=== PATIENT | male | born 1965 | race Caucasian/White ===

== ENCOUNTER 2018-05-23 19:55 | Emergency (ER) | payer OTHER, SELFPAY ==
[2018-05-23 20:10] VITALS: BP 165/99; PULSE 88; RESP 18; TEMP 36.6; O2SAT 97; BMI 33.7
--- NOTE | 2018-05-23 20:35 | ED.SKABFB ---
HPI - Skin/Abscess/Foreign Bdy General Chief complaint: Skin/Abscess/Foreign Body Stated complaint: BOIL ON CHEST Time Seen by Provider: 05/23/18 20:23 Source: patient Mode of arrival: ambulatory Limitations: no limitations History of Present Illness HPI narrative: 53-year-old male here for evaluation of a red area on his left anterior chest wall. He states that he noticed it a couple days ago. States that he thought that it was an ingrown hair. He did poke it with a needle and was able to express a very small amount of what appeared to be purulent material. No fevers. Has never had anything like this before. Has not tried anything for it other than poking with a needle prior to arrival. Related Data Home Medications Medication Instructions Recorded Confirmed Brain Elevate See Label Instructions .ROUTE 02/27/18 02/27/18 .COMPLEX Fish Oil/Red Rice Yeast See Label Instructions .ROUTE 02/27/18 02/27/18 .COMPLEX Previous Rx's Medication Instructions Recorded sulfamethoxazole-trimethoprim 1 tab PO BID 7 Days #14 tab 05/23/18 [Bactrim DS] Allergies Allergy/AdvReac Type Severity Reaction Status Date / Time shellfish derived Allergy Mild (shrimp) Verified 05/23/18 20:24 [SHELLFISH DERIVED] Itchy throat and blisters in my throat simvastatin [SIMVASTATIN] AdvReac Intermediate muscle Verified 05/23/18 20:24 cramps levofloxacin [LEVOFLOXACIN] AdvReac Mild put me on Verified 05/23/18 20:24 edge and totally freaked me out. Review of Systems Constitutional Denies fever(s) Cardiovascular Denies chest pain Musculoskeletal Denies myalgias Integumentary/Breasts Comments: Redness on his left side anterior chest Neurologic Denies behavioral changes Psychiatric Denies behavioral changes PFSH Medical History Healthy adult (Acute) Family History Mother Age: 70 Family history of breast cancer in female Social History Smoking Status: Never smoker second hand exposure: No alcohol intake: current (a little bit.) substance use type: does not use Exam Initial Vital Signs Initial Vital Signs: Vital Signs Temperature 98 F 05/23/18 20:10 Pulse Rate 88 05/23/18 20:10 Respiratory Rate 18 05/23/18 20:10 Blood Pressure 165/99 H 05/23/18 20:10 Pulse Oximetry 97 05/23/18 20:10 Const General: cooperative, healthy appearing, comfortable, well developed, well groomed and No acute distress Orientation: alert, awake and oriented x3 HENMT Head: normal to inspection and normocephalic Resp Effort & Inspection: normal respiratory effort Cardio Rate: regular rate Skin Other: Patient with a 10 cm round area of redness on his left anterior chest just above the nipple. The center this has a 3 cm area of induration with a punctate area where it appears that he poked this with a needle. No drainage. Neuro General: alert, awake and oriented x3 Extrem General: normal to inspection and capillary refill normal Psych Appearance: grossly normal and well kempt Course Orders Ordered: Discontinued Medications Trimethoprim/Sulfamethoxazole (Bactrim Ds) 1 tab PO NOW ONE Stop: 05/23/18 20:37 Last Admin: 05/23/18 20:40 Dose: 1 tab Vital Signs - 8 hr 05/23/18 20:10 Temperature 98 F Pulse Rate 88 Respiratory Rate 18 Blood Pressure 165/99 H Pulse Oximetry 97 MDM - Skin/Abscess/Foreign Bdy MDM Narrative Medical decision making narrative: Bedside ultrasound does not show any signs of abscess. The area of redness was outlined with a marker. Will send home with Bactrim. No indication for incision and drainage. Patient was given return precautions. He expressed understanding and agreement with plan. Discharge Plan Departure Patient Disposition: Home Clinical Impression: Cellulitis Discharge Date/Time: 05/23/18 20:55 Interventions: ED Discharge Assessment Last Done: 05/23/18 20:54 Instructions: DI for Cellulitis -- Adult Activity Restrictions/Additional Instructions: There is no abscess noted on the ultrasound performed today. Your 1st dose of antibiotics was given here in the emergency department. Please fill the prescription tomorrow morning and start taking it as directed. Return to the emergency department for any new or worsening symptoms Prescriptions: New sulfamethoxazole-trimethoprim [Bactrim DS] 800-160 mg tablet 1 tab PO BID 7 Days Qty: 14 RF: 0 No Action Brain Elevate capsule See Patient Comments .ROUTE .COMPLEX RF: 0 Fish Oil/Red Rice Yeast capsule See Patient Comments .ROUTE .COMPLEX RF: 0
[2018-05-23] MEDS: TRIMETH/SULFA 160/800 (DS) TABLET 1 TAB PO (20:40)
== END 2018-05-23 20:55 | disposition home or self-care (01) ==
PROVIDERS: Emergency Provider Emergency Medicine; PCP Family Medicine
DX: L03.313 Cellulitis of chest wall (principal)
CPT/HCPCS: 99282; 99283

== ENCOUNTER → 2018-12-18 08:40 | Outpatient (CLI) | payer BC, SELFPAY ==
--- NOTE | 2018-12-18 | DI.RAD.S_ITS ---
PROCEDURE: XR LUMBAR SPINE 2-3V INDICATIONS: LOWER BACK PAIN TECHNIQUE: 3 views of the lumbar spine were acquired. COMPARISON: None. FINDINGS: Bones: 5 [id number] vertebrae are present. There is normal bony alignment. No vertebral body compression fractures. No suspicious bony lesions. There is moderate to moderately severe degenerative disc disease along the lumbosacral spine, with facet osteoarthritis most pronounced and progressively more prominent from L3-S1. Soft tissues: Overlying bowel gas pattern is normal. No suspicious soft tissue calcifications. IMPRESSION: The spine appears free of acute trauma but the degenerative changes are significant to the degree that spinal and foraminal stenosis from L3 inferiorly would be expected. Depending on the clinical status followup by MR scanning may be warranted. Dictated by: Ricky Wise M.D. on 12/18/2018 at 9:53 Approved by: Ricky Wise M.D. on 12/18/2018 at 9:54
== END ==
PROVIDERS: PCP Family Medicine; Visit Provider Chiropractor
DX: M54.5 Low back pain (principal); M47.816 Spondylosis without myelopathy or radiculopathy, lumbar region; M47.817 Spondylosis without myelopathy or radiculopathy, lumbosacral region
CPT/HCPCS: 72100

== ENCOUNTER → 2019-05-30 08:18 | Outpatient (CLI) | payer BC, SELFPAY ==
[2019-05-30 09:19] LABS: Hemoglobin A1C% w Est Avg Glu 5.3 % (4.0-6.0)
[2019-05-30 09:36] LABS: Alanine Aminotransferase 45 IU/L (<50); Albumin 4.6 g/dL (3.5-5.0); Albumin Globulin Ratio 1.4 (1.0-2.8); Alkaline Phosphatase 77 U/L (38-126); Aspartate Aminotransferase 33 IU/L (17-59); Bilirubin Total 0.7 mg/dL (0.2-1.3); Blood Urea Nitrogen 21 mg/dL (9-20); Calcium 9.3 mg/dL (8.4-10.2); Carbon Dioxide 25 mmol/L (22-32); Chloride 105 mmol/L (98-107); Cholesterol 225 mg/dL (140-199); Estimated Glomerular Filt Rate > 60.0 mL/min (>60); Globulin 3.4 g/dL (1.7-4.1); Glucose 93 mg/dL (70-100); HDL Cholesterol 29 mg/dL (40-60); HEMOLYSIS < 15 (0-50); LDL Cholesterol Calculated 166 mg/dL (<100); Potassium 4.3 mmol/L (3.4-5.1); Sodium 140 mmol/L (137-145); Triglycerides 150 mg/dL (35-150)
== END ==
PROVIDERS: PCP Family Medicine; Visit Provider Family Medicine
DX: Z13.1 Encounter for screening for diabetes mellitus (principal); Z13.220 Encounter for screening for lipoid disorders; E78.00 Pure hypercholesterolemia, unspecified
CPT/HCPCS: 36415; 80053; 80061; 83036

== ENCOUNTER → 2019-08-11 13:14 | Outpatient (CLI) | payer BC, SELFPAY ==
[2019-08-11 15:06] LABS: Prostate Specific Antigen Scrn 1.36 ng/mL (0.1-4.0)
== END ==
PROVIDERS: PCP Family Medicine; Referring Provider Family Medicine; Visit Provider Family Medicine
DX: Z12.5 Encounter for screening for malignant neoplasm of prostate (principal)
CPT/HCPCS: 36415; G0103

== ENCOUNTER → 2020-07-31 10:09 | Outpatient (CLI) | payer BC, SELFPAY ==
[2020-07-31 10:40] LABS: Add Manual Diff / Slide Review NO; Basophils Absolute Auto 0 /uL (0-100); Basophils Percent Auto 0.5 % (0-2); Eosinophils Absolute Auto 200 /uL (0-450); Eosinophils Percent Auto 3.3 % (2-4); Hematocrit 47.8 % (41-53); Hemoglobin 16.2 g/dL (13.5-17.5); Lymphocytes Absolute Auto 2200 /uL (1100-4500); Lymphocytes Percent Auto 34.7 % (25-40); Mean Corpuscular HGB Conc 33.9 % (30-36); Mean Corpuscular Hemoglobin 30.8 PG (26-34); Monocytes Absolute Auto 800 /uL (0-900); Monocytes Percent Auto 12.2 % (3-14); Neutrophils Absolute Auto 3100 /uL (1500-7000); Neutrophils Percent Auto 49.3 % (50-75); Platelet Count 271 X10^3/uL (150-400); Red Blood Cell Count 5.25 X10^6/uL (4.5-5.9); Red Cell Distribution Width 13.4 % (11.6-14.8); White Blood Cell Count 6.2 X10^3/uL (4.5-11.0)
[2020-07-31 11:09] LABS: Alanine Aminotransferase 64 IU/L (<50); Albumin 4.4 g/dL (3.5-5.0); Albumin Globulin Ratio 1.4 (1.0-2.8); Alkaline Phosphatase 93 U/L (38-126); Aspartate Aminotransferase 33 IU/L (17-59); BUN Creatinine Ratio 19.4 (6-22); Bilirubin Total 0.5 mg/dL (0.2-1.3); Blood Urea Nitrogen 19 mg/dL (9-20); Calcium 9.8 mg/dL (8.4-10.2); Carbon Dioxide 26 mmol/L (22-32); Chloride 104 mmol/L (98-107); Cholesterol 212 mg/dL (140-199); Estimated Glomerular Filt Rate > 60.0 mL/min (>60); Globulin 3.2 g/dL (1.7-4.1); Glucose 102 mg/dL (70-100); HDL Cholesterol 40 mg/dL (40-60); HEMOLYSIS < 15 (0-50); LDL Cholesterol Calculated 144 mg/dL (<100); Potassium 4.8 mmol/L (3.4-5.1); Sodium 137 mmol/L (137-145); Total Protein 7.6 g/dL (6.3-8.2); Triglycerides 138 mg/dL (35-150)
[2020-07-31 11:38] LABS: Prostate Specific Antigen Scrn 0.931 ng/mL (0.1-4.0)
== END ==
PROVIDERS: PCP Family Medicine; Referring Provider Family Medicine; Visit Provider Family Medicine
DX: E78.5 Hyperlipidemia, unspecified (principal); E78.00 Pure hypercholesterolemia, unspecified; Z12.5 Encounter for screening for malignant neoplasm of prostate
CPT/HCPCS: 36415; 80053; 80061; 85025; G0103

== ENCOUNTER → 2020-08-02 10:46 | Outpatient (CLI) | payer BC, SELFPAY ==
--- NOTE | 2020-08-02 10:59 | DI.RAD.S_ITS ---
PROCEDURE: XR CHEST 2V INDICATIONS: cough TECHNIQUE: 2 views of the chest were acquired. COMPARISON: None. FINDINGS: Surgical changes and devices: None. Lungs and pleura: Lungs are clear. No pleural effusions or pneumothorax. Mediastinum: Mediastinal contours are normal. Heart size is normal. Bones and chest wall: No suspicious bony abnormalities. Soft tissues appear unremarkable. IMPRESSION: No acute cardiopulmonary disease. Dictated by: Nima Chavez [facility] Interpreted: Meño Go MD on 08/02/2020 at 11:19 Approved by: Meño Go M.D. on 08/10/2020 at 11:18
== END ==
PROVIDERS: PCP Family Medicine; Referring Provider Family Medicine; Visit Provider Family Medicine
DX: R05 Cough (principal)
CPT/HCPCS: 71046

== ENCOUNTER → 2021-04-19 17:26 | Outpatient (CLI) | payer OTHER, SELFPAY ==
[2021-04-19 18:07] LABS: COVID19 -Nasal RAPID POSITIVE (Negative)
== END ==
PROVIDERS: PCP Family Medicine; Visit Provider Physician Assistant
DX: R05.9 Cough, unspecified (principal); R52 Pain, unspecified
CPT/HCPCS: 87635

== ENCOUNTER 2021-08-04 11:55 | Emergency (ER) | payer OTHER, SELFPAY ==
[2021-08-04 12:14] VITALS: BP 147/89; PULSE 56; RESP 15; TEMP 36.4; O2SAT 96; BMI 36.6
[2021-08-04 13:43] VITALS: PULSE 67; RESP 18; O2SAT 98
[2021-08-04 13:44] VITALS: BP 144/85; PULSE 67; O2SAT 97
[2021-08-04 14:00] VITALS: PULSE 62; RESP 18; O2SAT 97
[2021-08-04 14:04] VITALS: BP 133/86; PULSE 63; O2SAT 97
[2021-08-04 14:30] VITALS: PULSE 62; RESP 18; O2SAT 98
--- NOTE | 2021-08-04 15:38 | DI.RAD.S_ITS ---
PROCEDURE: XR FOREARM RT 2V INDICATIONS: Pain/injury TECHNIQUE: 2 views of the forearm were acquired. COMPARISON: [facility], CR, XR HUMERUS RT 2V, 08/04/2021, 15:37. FINDINGS: Bones: No fractures or dislocations. No suspicious bony lesions. Soft tissues: No suspicious soft tissue calcifications or masses. IMPRESSION: No acute osseous abnormality. Dictated by: Vasquez Hawkins M.D. on 08/04/2021 at 16:01 Approved by: Vasquez Hawkins M.D. on 08/04/2021 at 16:04
--- NOTE | 2021-08-04 15:38 | DI.RAD.S_ITS ---
PROCEDURE: XR HUMERUS RT 2V INDICATIONS: Pain/injury TECHNIQUE: 2 views of the humerus were acquired. COMPARISON: [facility], CR, XR FOREARM RT 2V, 08/04/2021, 15:37. FINDINGS: Bones: No fractures or dislocations. Mild to moderate degenerative change of the right shoulder. No suspicious bony lesions. Soft tissues: No suspicious soft tissue calcifications. IMPRESSION: No acute osseous abnormality. Dictated by: Vasquez Hawkins M.D. on 08/04/2021 at 16:04 Approved by: Vasquez Hawkins M.D. on 08/04/2021 at 16:05
--- NOTE | 2021-08-04 15:39 | ED_ITS ---
HPI - Extremity Injury (Upper) General Chief Complaint: Extremity Injury, Upper Stated Complaint: Thinks Tore Rt Bicep Time Seen by Provider: 08/04/21 15:33 Source: patient Mode of arrival: Ambulatory History of Present Illness HPI narrative: Patient here for right biceps arm pain. Was at home late this morning was throwing a branch. Feel tearing in the distal biceps. No numbness tingling or weakness. No prior injury. There is deformity to the distal portion of the right bicep. Related Data Home Medications Medication Instructions Recorded Confirmed Brain Elevate See Rx Instructions .ROUTE .COMPLEX 02/27/18 08/02/20 Fish Oil/Red Rice Yeast See Rx Instructions .ROUTE .COMPLEX 02/27/18 08/02/20 multivitamin 1 tab PO DAILY 05/30/19 08/02/20 Previous Rx's Medication Instructions Recorded pravastatin 10 mg tablet 10 mg PO BEDTIME #90 tab 08/20/20 hydrocodone 5 mg-acetaminophen 325 1 tab PO Q6H PRN #15 tab 08/04/21 mg tablet ondansetron 4 mg disintegrating 4 mg PO Q8H PRN #10 tab 08/04/21 tablet Allergies Allergy/AdvReac Type Severity Reaction Status Date / Time shellfish derived Allergy Mild (shrimp) Verified 08/04/21 12:16 [SHELLFISH DERIVED] Itchy throat and blisters in my throat simvastatin [SIMVASTATIN] AdvReac Intermediate muscle Verified 08/04/21 12:16 cramps levofloxacin [LEVOFLOXACIN] AdvReac Mild put me on Verified 08/04/21 12:16 edge and totally freaked me out. Review of Systems Review of Systems Narrative: GENERAL: Denies chills, fatigue, malaise, fever, sweats. HEENT: Denies sinus pain, ear pain, sore throat RESPIRATORY: Denies dyspnea, cough CARDIOVASCULAR: Denies chest pain, palpitations GASTROINTESTINAL: Denies nausea, vomiting, abdominal pain : Denies dysuria, frequency, hematuria MUSCULOSKELETAL: Positive for muscle or bony pain SKIN: Denies rash, skin lesions NEUROLOGIC: Denies weakness, numbness ROS Unobtainable: All systems reviewed & are unremarkable except as noted in HPI and below Patient History Medical History Encounter for general adult medical examination without abnormal findings Healthy adult Hyperlipidemia Low back pain Well adult exam Family History Mother Age: 73 Family history of breast cancer in female Social History Smoking Status: Never smoker second hand exposure: No alcohol intake: current (a little bit.) substance use type: does not use Smoking Status: Never smoker alcohol intake frequency: holidays/special occasions only Substance Use Type: does not use Exam Narrative Exam Narrative: GENERAL: in no distress, not toxic not dyspneic HEAD: Normocephalic. EXTREMITIES: Examination right upper extremity nontender shoulder elbow and wrist. There is drop off deformity of the distal biceps. Increased pain with attempt with flexion of the elbow with deformity to the biceps. Able to supinate pronate. Strong senior sales consultant in radial pulse light touch intact to fingers and thumb. NEURO: AOx4. SKIN: Warm and dry PSYCH: Not anxious, is cooperative Initial Vital Signs Initial Vital Signs: Vital Signs Temperature 97.6 F 08/04/21 12:14 Pulse Rate 56 L 08/04/21 12:14 Respiratory Rate 15 08/04/21 12:14 Blood Pressure 147/89 H 08/04/21 12:14 Pulse Oximetry 96 08/04/21 12:14 Course Course Course Narrative: No new issues during course of stay Orders Ordered: Discontinued Medications Hydrocodone Bitart/Acetaminophen (Hydrocodone/Acet 5/325 Tablet) 2 tab PO NOW ONE Stop: 08/04/21 15:39 Last Admin: 08/04/21 15:43 Dose: 2 tab Documented by: JNAET Ondansetron HCl (Ondansetron 4 Mg Odt) 4 mg SL NOW ONE Stop: 08/04/21 15:39 Last Admin: 08/04/21 15:43 Dose: 4 mg Documented by: JANET Reevaluation(s) Reevaluation #1: Updated patient and family results. At this time will need outpatient MRI with orthopedics. Referral given. Pain controlled at this time. Sling provided. Time: 16:34 Vital Signs Vital signs: Vital Signs - 8 hr 08/04/21 12:14 08/04/21 13:43 08/04/21 13:44 Temperature 97.6 F Pulse Rate 56 L 67 67 Respiratory Rate 15 18 Blood Pressure 147/89 H 144/85 H Pulse Oximetry 96 98 97 08/04/21 14:00 08/04/21 14:04 08/04/21 14:30 Temperature Pulse Rate 62 63 62 Respiratory Rate 18 18 Blood Pressure 133/86 Pulse Oximetry 97 97 98 MDM - Extremity Injury (Upper) Differential Diagnosis Differential diagnosis: Likely other (Muscle tear/fracture) Imaging Data Extremity x-ray #1: Radiologist's Impression: [address] [address] XRay Report Signed Patient: David Ariza MR#: [id number] : 1965 Acct:[id number] Age/Sex: 56 / M Date of Service: 08/04/21 Loc: ED Accession Number: [id number] ?? Procedure: XR humerus RT 2V Ordering Provider: Lefty Farr MD PROCEDURE:? XR HUMERUS RT 2V ? INDICATIONS:? Pain/injury ? TECHNIQUE:? 2 views of the humerus were acquired.? ? COMPARISON:? [facility], XR FOREARM RT 2V, 08/04/2021, 15:37. ? FINDINGS:? ? Bones:? No fractures or dislocations.? Mild to moderate degenerative change of the right shoulder.? No suspicious bony lesions.? ? Soft tissues:? No suspicious soft tissue calcifications.? ? IMPRESSION:? No acute osseous abnormality. ? ? Dictated by: Vasquez Hawkins M.D. on 08/04/2021 at 16:04 ? ? Approved by: Vasquez Hawkins M.D. on 08/04/2021 at 16:05 ? Extremity x-ray #2: Radiologist's Impression: [address] [address] XRay Report Signed Patient: David Ariza MR#: [id number] : 1965 Acct:[id number] Age/Sex: 56 / M Date of Service: 08/04/21 Loc: ED Accession Number: [id number] ?? Procedure: XR forearm RT 2V Ordering Provider: Lefty Farr MD PROCEDURE:? XR FOREARM RT 2V ? INDICATIONS:? Pain/injury ? TECHNIQUE:? 2 views of the forearm were acquired.? ? COMPARISON:? [facility], XR HUMERUS RT 2V, 08/04/2021, 15:37. ? FINDINGS:? ? Bones:? No fractures or dislocations.? No suspicious bony lesions.? ? Soft tissues:? No suspicious soft tissue calcifications or masses.? ? ? IMPRESSION:? No acute osseous abnormality. ? Dictated by: Vasquez Hawkins M.D. on 08/04/2021 at 16:01 ? ? Approved by: Vasquez Hawkins M.D. on 08/04/2021 at 16:04 ? MDM Narrative Medical decision making narrative: For discharge home. Neurovascularly intact. Return precautions reviewed with him. Orthopedic follow-up given. Appropriate for outpatient MRI as well. Treatment plan reviewed with patient and family. They agree with treatment plan. is driving. Discharge Plan Departure Patient Disposition: Home Clinical Impression: Injury of tendon of biceps Instructions: DI for Muscle Strain Activity Restrictions/Additional Instructions: Use sling for comfort. Call provided orthopedic office tomorrow for office recheck within a week. Return if worse or if any questions or concerns. You have likely injured your bicep muscle/tendon. This will need to be re-evaluated by orthopedics. Office number has been provided for you. Prescriptions: New hydrocodone-acetaminophen 5-325 mg tablet 1 tab PO Q6H PRN (Reason: pain) Qty: 15 0RF ondansetron 4 mg tablet,disintegrating 4 mg PO Q8H PRN (Reason: nausea and vomiting) Qty: 10 0RF No Action Brain Elevate capsule See Rx Instructions .ROUTE .COMPLEX 0RF Label Comments: 2 CAPS PO QDAY Rx Instructions: 2 CAPS PO QDAY Fish Oil/Red Rice Yeast capsule See Rx Instructions .ROUTE .COMPLEX 0RF Label Comments: 1 CAP PO QDAY when patient remembers Rx Instructions: 1 CAP PO QDAY when patient remembers pravastatin 10 mg tablet 10 mg PO BEDTIME Qty: 90 1RF multivitamin Tablet 1 tab PO DAILY 0RF Referrals: Bryan Mcneal DO [Primary Care Provider] - Prieto Barros MD [Physician] -
[2021-08-04] MEDS: ONDANSETRON 4 MG ODT SL (15:43)
[2021-08-04] MEDS: HYDROCODONE/ACET 5/325 TABLET 2 TAB PO (15:43)
== END 2021-08-04 16:45 | disposition home or self-care (01) ==
PROVIDERS: Emergency Provider Emergency Medicine; PCP Family Medicine
DX: S46.201A Unspecified injury of muscle, fascia and tendon of other parts of biceps, right arm, initial encounter (principal); X58.XXXA Exposure to other specified factors, initial encounter; Y93.89 Activity, other specified; Y92.009 Unspecified place in unspecified non-institutional (private) residence as the place of occurrence of the external cause
CPT/HCPCS: 73060; 73090; 99283

== ENCOUNTER → 2021-12-23 09:50 | Outpatient (CLI) | payer OTHER, SELFPAY ==
[2021-12-23 11:02] LABS: Hematocrit 44.4 % (41-53); Hemoglobin 15.4 g/dL (13.5-17.5); Mean Corpuscular HGB Conc 34.8 % (30-36); Mean Corpuscular Hemoglobin 31.3 PG (26-34); Platelet Count 288 X10^3/uL (150-400); Red Blood Cell Count 4.93 X10^6/uL (4.5-5.9); White Blood Cell Count 6.5 X10^3/uL (4.5-11.0)
[2021-12-23 11:28] LABS: Neutrophils Absolute Manual 3900 /uL (3000-5900); Total Cells Counted 100
[2021-12-23 11:29] LABS: RBC Morphology Normal Morphology
[2021-12-23 11:41] LABS: Alanine Aminotransferase 42 IU/L (<50); Albumin 4.7 g/dL (3.5-5.0); Albumin Globulin Ratio 1.4 (1.0-2.8); Alkaline Phosphatase 86 U/L (38-126); Aspartate Aminotransferase 34 IU/L (17-59); BUN Creatinine Ratio 16.5 (6-22); Bilirubin Total 0.6 mg/dL (0.2-1.3); Blood Urea Nitrogen 16 mg/dL (9-20); Calcium 9.7 mg/dL (8.4-10.2); Carbon Dioxide 26 mmol/L (22-32); Chloride 101 mmol/L (98-107); Cholesterol 212 mg/dL (140-199); Estimated Glomerular Filt Rate > 60 mL/min (>60); Globulin 3.3 g/dL (1.7-4.1); Glucose 89 mg/dL (70-100); HDL Cholesterol 31 mg/dL (40-60); HEMOLYSIS < 15 (0-50); LDL Cholesterol Calculated 146 mg/dL (<100); Potassium 4.8 mmol/L (3.4-5.1); Sodium 139 mmol/L (137-145); Triglycerides 175 mg/dL (35-150)
[2021-12-23 12:10] LABS: Prostate Specific Antigen 1.38 ng/mL (0.10-4.00)
== END ==
PROVIDERS: PCP Family Medicine; Referring Provider Family Medicine; Visit Provider Family Medicine
DX: Z00.00 Encounter for general adult medical examination without abnormal findings (principal); Z12.5 Encounter for screening for malignant neoplasm of prostate
CPT/HCPCS: 36415; 80053; 80061; 84153; 85025

== ENCOUNTER → 2022-01-04 07:45 | Outpatient (CLI) | payer OTHER, SELFPAY ==
[2022-01-04 08:29] LABS: COVID19 -Nasal RAPID Negative (Negative)
--- NOTE | 2022-01-04 09:09 | PM.TREADMILL ---
Cardiac Stress Test Report Referral & Results Date Patient Seen: 01/04/22 Time Patient Seen: 08:45 Requesting provider: Bryan Mcneal Indication: Fatigue, exercise intolerance Rest ECG: Normal sinus rhythm Procedure Note: Today, following both written and verbal informed consent, the patient was exercised according to a standard Jake protocol. The patient exercised for a total of 9 minutes 44 seconds achieving a maximum heart rate of 160. Patient's maximum systolic blood pressure was 188. This was an estimated 10.1 METs. Normal hemodynamic response to exercise. No signs or symptoms of angina. No EKG changes. Normal exercise capacity (FA I-5% on active scale). Impression: Low probability for ischemia. Glover treadmill score of 9 is correlated with 97% 5 year survival rate from cardiac causes of mortality. Please note: Actual ECG tracings can be found in the PACS system.
== END ==
PROVIDERS: PCP Family Medicine; Referring Provider Family Medicine; Visit Provider Family Medicine
DX: E78.2 Mixed hyperlipidemia (principal); R53.82 Chronic fatigue, unspecified; Z20.822 Contact with and (suspected) exposure to COVID-19
CPT/HCPCS: 87635; 93016; 93017; 93018

== ENCOUNTER → 2022-01-13 14:55 | Outpatient (CLI) | payer OTHER, SELFPAY ==
--- NOTE | 2022-01-13 14:57 | DI.RAD.S_ITS ---
PROCEDURE: XR CHEST 2V INDICATIONS: eval resp symptoms >3 months TECHNIQUE: 2 views of the chest were acquired. COMPARISON: [facility], CR, XR CHEST 2V, 08/02/2020, 10:58. FINDINGS: Surgical changes and devices: None. Lungs and pleura: No consolidation identified. Lung volumes are within normal limits. No pleural effusions or pneumothorax. Mediastinum: There is abnormal fullness in the right greater than left hilar region. Heart size is normal. Bones and chest wall: No suspicious bony abnormalities. Soft tissues appear unremarkable. IMPRESSION: Abnormal right greater than left hilar fullness. This could be due to adenopathy. Recommend CT chest with IV contrast for further evaluation. Comment: Findings were discussed with Rosalie in office of ordering provider at the time of dictation. Dictated by: Vasquez Hawkins M.D. on 01/13/2022 at 16:22 Approved by: Vasquez Hawkins M.D. on 01/13/2022 at 16:36
== END ==
PROVIDERS: PCP Family Medicine; Referring Provider Family Medicine; Visit Provider Family Medicine
DX: R05.9 Cough, unspecified (principal); R91.8 Other nonspecific abnormal finding of lung field
CPT/HCPCS: 71046

== ENCOUNTER → 2022-01-23 10:22 | Outpatient (CLI) | payer OTHER, SELFPAY ==
--- NOTE | 2022-01-23 10:22 | DI.CT.S_ITS ---
PROCEDURE: CT CHEST W CON INDICATIONS: CXR with abnormal hilar fullness TECHNIQUE: After the administration of intravenous contrast, 5 mm thick sections acquired from the pulmonary apices to the posterior costophrenic angles. 1 mm axial lung, 5 mm thick coronal and sagittal reformats and 7 mm axial MIP were acquired. For radiation dose reduction, the following was used: automated exposure control, adjustment of mA and/or kV according to patient size. COMPARISON: [facility], CR, XR CHEST 2V, 08/02/2020, 10:58. [facility], CR, XR CHEST 2V, 01/13/2022, 15:01. FINDINGS: Image quality: Excellent. Lungs and pleura: Pulmonary nodules are present in both lungs, predominantly in a perilymphatic distribution with nodules present largely along the bronchovascular structures and along the fissures. No definite or substantial fibrosis or traction bronchiectasis. No pleural effusion. Mediastinum: Heart size is normal. No pericardial effusion. Mediastinal and bilateral hilar adenopathy is present. Examples include a 1.7 centimeter right lower paratracheal lymph node (2/29), 2.9 centimeter right hilar lymph node (2/36) and 2.5 centimeter left hilar lymph node (2/35). Thoracic aorta and central pulmonary arteries are normal in size. Esophagus is normal in caliber. Bones and chest wall: No suspicious bony lesions. No vertebral body compression fractures. Remote left-sided rib fractures are present. No axillary adenopathy by size criteria. Abdomen: Visualized upper abdominal solid organs appear normal. Upper abdominal bowel loops are normal in caliber. IMPRESSION: Mediastinal and bilateral hilar adenopathy is present in addition to multiple pulmonary nodules in both lungs, largely in a perilymphatic distribution. Overall findings are suspicious for sarcoidosis, other etiologies such as metastatic disease, lymphoma, silicosis/berylliosis not excluded. Pulmonology consultation may be helpful to direct further management, and additional/follow-up imaging can be obtained if clinically indicated. Dictated by: Power Franks M.D. on 01/23/2022 at 14:56 Approved by: Powre Franks M.D. on 01/23/2022 at 15:18
== END ==
PROVIDERS: PCP Family Medicine; Referring Provider Family Medicine; Visit Provider Family Medicine
DX: R93.89 Abnormal findings on diagnostic imaging of other specified body structures (principal); R91.8 Other nonspecific abnormal finding of lung field
CPT/HCPCS: 71260; Q9967

== ENCOUNTER → 2023-01-24 16:05 | Outpatient (CLI) | payer OTHER, SELFPAY ==
[2023-01-24 17:46] LABS: Add Manual Diff / Slide Review NO; Basophils Absolute Auto 0 /uL (0-100); Basophils Percent Auto 0.4 % (0-2); Eosinophils Absolute Auto 100 /uL (0-450); Eosinophils Percent Auto 1.6 % (2-4); Hematocrit 45.3 % (41-53); Hemoglobin 15.5 g/dL (13.5-17.5); Lymphocytes Absolute Auto 1200 /uL (1100-4500); Lymphocytes Percent Auto 18.1 % (25-40); Mean Corpuscular HGB Conc 34.1 % (30-36); Mean Corpuscular Hemoglobin 31.1 PG (26-34); Monocytes Absolute Auto 800 /uL (0-900); Monocytes Percent Auto 12.3 % (3-14); Neutrophils Absolute Auto 4500 /uL (1500-7000); Neutrophils Percent Auto 67.6 % (50-75); Platelet Count 269 X10^3/uL (150-400); Red Blood Cell Count 4.97 X10^6/uL (4.5-5.9); Red Cell Distribution Width 13.8 % (11.6-14.8); White Blood Cell Count 6.7 X10^3/uL (4.5-11.0)
[2023-01-24 18:11] LABS: Alanine Aminotransferase 62 IU/L (<50); Albumin 4.5 g/dL (3.5-5.0); Albumin Globulin Ratio 1.3 (1.0-2.8); Alkaline Phosphatase 84 U/L (38-126); Aspartate Aminotransferase 34 IU/L (17-59); BUN Creatinine Ratio 13.8 (6-22); Bilirubin Total 0.7 mg/dL (0.2-1.3); Blood Urea Nitrogen 13 mg/dL (9-20); Calcium 9.2 mg/dL (8.4-10.2); Carbon Dioxide 24 mmol/L (22-32); Chloride 103 mmol/L (98-107); Cholesterol 227 mg/dL (140-199); Estimated Glomerular Filt Rate > 60 mL/min (>60); Globulin 3.5 g/dL (1.7-4.1); Glucose 94 mg/dL (70-100); HDL Cholesterol 36 mg/dL (40-60); HEMOLYSIS < 15 (0-50); LDL Cholesterol Calculated 161 mg/dL (<100); Sodium 137 mmol/L (137-145); Triglycerides 152 mg/dL (35-150)
== END ==
PROVIDERS: PCP Family Medicine; Referring Provider Family Medicine; Visit Provider Family Medicine
DX: Z00.00 Encounter for general adult medical examination without abnormal findings (principal)
CPT/HCPCS: 80053; 80061; 84153; 85025

== ENCOUNTER → 2023-05-22 10:55 | Outpatient (CLI) | payer OTHER, SELFPAY ==
--- NOTE | 2023-05-22 10:56 | DI.RAD.S_ITS ---
PROCEDURE: XR KNEE LT 3V INDICATIONS: eval Left knee pain TECHNIQUE: 3 views of the knee were acquired. COMPARISON: None. FINDINGS: Bones: No fractures or dislocations. No suspicious bony lesions. Mild osteoarthritic changes are noted. Soft tissues: No joint effusion. No suspicious soft tissue calcifications. IMPRESSION: Mild osteoarthritis. Dictated by: Harmony Hackett M.D. on 05/22/2023 at 14:19 Approved by: Harmony Hackett M.D. on 05/22/2023 at 14:19
== END ==
PROVIDERS: PCP Family Medicine; Referring Provider Family Medicine; Visit Provider Family Medicine
DX: M17.12 Unilateral primary osteoarthritis, left knee (principal); M25.562 Pain in left knee
CPT/HCPCS: 73562

== ENCOUNTER → 2023-06-06 13:41 | Outpatient (CLI) | payer OTHER, SELFPAY ==
--- NOTE | 2023-06-06 14:04 | DI.MRI.S_ITS ---
PROCEDURE: MR KNEE LT WO CON INDICATIONS: LEFT KNEE PAIN TECHNIQUE: Noncontrast sagittal PD fast spin echo and T2 fast spin echo with fat saturation, sagittal 3-D FLASH with fat saturation; coronal T1 spin echo and PD fast spin echo with fat saturation, and axial PD fast spin echo with fat saturation through the knee. COMPARISON: [facility], CR, XR KNEE LT 3V, 05/22/2023, 10:59. FINDINGS: Image quality: Diagnostic Menisci: Medial: Horizontal tear of the body and posterior horn. Suspected partial radial root tear. Lateral: Intact. Meniscopopliteal fascicles maintained. Cruciate ligaments: Intact Medial structures: MCL: Mild periligamentous edema Pes anserine tendons: Intact Semimembranosus: Ivco-pi-xsrakkkz insertional tendinopathy Lateral structures: LCL: Mild edema at the origin Biceps femoris: Intact IT band: Intact Popliteus tendon: Srfj-lp-jtlzlrqu insertional tendinopathy Anterior structures: Extensor mechanism: Mild edema at the patellar origin Fat pads: Prominent, mildly edematous suprapatellar fat pad There is also mild prepatellar edema. Medial retinaculum: Intact. Trochlea: Unremarkable morphology. Bone and joint: Bones: Scattered osteophytes. No acute fracture. Cartilage: No full-thickness defect or full-thickness loss. Larc-iy-xwizcqkj chondromalacia of the patella, with areas of partial thickness loss, and mild heterogeneity is seen elsewhere. Joint space: Wcmw-bb-azudkplu joint effusion Brown's cyst: Moderate Brown's cyst. Soft tissues: Small IMPRESSION: Complex medial meniscal tears, including a suspected partial root tear Intact cruciate ligaments. Possible sprains of the collateral ligaments. Early osteoarthritis changes. Prominent, mildly edematous suprapatellar fat pad, sometimes seen with impingement. Xuqq-bc-azpbbwhv effusion, moderate Brown's cyst, and mild prepatellar edema. Dictated by: Giles Benitez M.D. on 06/06/2023 at 15:57 Approved by: Giles Benitez M.D. on 06/06/2023 at 16:03
== END ==
PROVIDERS: PCP Family Medicine; Referring Provider Family Medicine; Visit Provider Family Medicine
DX: S83.232A Complex tear of medial meniscus, current injury, left knee, initial encounter (principal); M71.22 Synovial cyst of popliteal space [Baker], left knee; M25.462 Effusion, left knee; M25.562 Pain in left knee; G89.29 Other chronic pain
CPT/HCPCS: 73721

== ENCOUNTER → 2024-06-03 13:54 | Outpatient (CLI) | payer OTHER, SELFPAY | PROVIDERS: PCP Family Medicine; Visit Provider Nurse Practitioner Family | DX: J02.9 Acute pharyngitis, unspecified (principal) | CPT/HCPCS: 87070 ==

== ENCOUNTER → 2024-07-30 08:48 | Outpatient (CLI) | payer OTHER, SELFPAY ==
--- NOTE | 2024-07-30 08:48 | DI.RAD.S_ITS ---
PROCEDURE: XR CHEST 2V INDICATIONS: cough 10D, Fever 102 x2 D Hx sarcoid TECHNIQUE: 2 views of the chest were acquired. COMPARISON: [facility], CR, XR CHEST 2V, 01/13/2022, 15:01. FINDINGS: Surgical changes and devices: None. Lungs and pleura: Lungs are clear. No pleural effusions or pneumothorax. Mediastinum: Mediastinal contours are normal. Heart size is normal. Bones and chest wall: No suspicious bony abnormalities. Soft tissues appear unremarkable. IMPRESSION: No acute cardiopulmonary abnormality is seen. Dictated by: Meño Go M.D. on 07/30/2024 at 9:29 Approved by: Meño Go M.D. on 07/30/2024 at 9:33
== END ==
PROVIDERS: PCP Family Medicine; Referring Provider Nurse Practitioner Family; Visit Provider Nurse Practitioner Family
DX: D86.0 Sarcoidosis of lung (principal); R05.9 Cough, unspecified; R50.9 Fever, unspecified
CPT/HCPCS: 71046

== ENCOUNTER → 2024-09-01 10:04 | Outpatient (CLI) | payer OTHER, SELFPAY ==
[2024-09-01 10:42] LABS: Add Manual Diff / Slide Review NO; Basophils Absolute Auto 0 /uL (0-100); Basophils Percent Auto 0.7 % (0-2); Eosinophils Absolute Auto 200 /uL (0-450); Eosinophils Percent Auto 4.7 % (2-4); Hematocrit 46.4 % (41-53); Hemoglobin 15.8 g/dL (13.5-17.5); Lymphocytes Absolute Auto 1400 /uL (1100-4500); Mean Corpuscular HGB Conc 34.1 % (30-36); Mean Corpuscular Hemoglobin 31.5 PG (26-34); Mean Corpuscular Volume 92.5 fL (80-100); Monocytes Absolute Auto 600 /uL (0-900); Monocytes Percent Auto 12.2 % (3-14); Neutrophils Absolute Auto 2700 /uL (1500-7000); Neutrophils Percent Auto 54.4 % (50-75); Platelet Count 193 X10^3/uL (150-400); Red Blood Cell Count 5.02 X10^6/uL (4.5-5.9)
[2024-09-01 11:10] LABS: Alanine Aminotransferase 52 IU/L (<50); Albumin 4.2 g/dL (3.5-5.0); Albumin Globulin Ratio 1.4 (1.0-2.8); Alkaline Phosphatase 77 U/L (38-126); Aspartate Aminotransferase 34 IU/L (17-59); BUN Creatinine Ratio 21.3 (6-22); Bilirubin Total 0.8 mg/dL (0.2-1.3); Blood Urea Nitrogen 20 mg/dL (9-20); Calcium 9.2 mg/dL (8.4-10.2); Carbon Dioxide 19 mmol/L (22-32); Chloride 108 mmol/L (98-107); Cholesterol 231 mg/dL (140-199); Estimated Glomerular Filt Rate > 60 mL/min (>60); Globulin 2.9 g/dL (1.7-4.1); Glucose 102 mg/dL (70-100); HDL Cholesterol 41 mg/dL (40-60); HEMOLYSIS < 15 (0-50); LDL Cholesterol Calculated 159 mg/dL (<100); Potassium 4.6 mmol/L (3.4-5.1); Sodium 137 mmol/L (137-145); Total Protein 7.1 g/dL (6.3-8.2); Triglycerides 156 mg/dL (35-150)
[2024-09-01 11:38] LABS: Prostate Specific Antigen 1.78 ng/mL (0.10-4.00)
== END ==
PROVIDERS: PCP Family Medicine; Referring Provider Family Medicine; Visit Provider Family Medicine
DX: Z00.00 Encounter for general adult medical examination without abnormal findings (principal); E78.00 Pure hypercholesterolemia, unspecified
CPT/HCPCS: 36415; 80053; 80061; 84153; 85025

== ENCOUNTER → 2025-02-26 17:21 | Outpatient (ROUT) | payer OTHER, SELFPAY | PROVIDERS: PCP Family Medicine; Visit Provider Registered Nurse | DX: L73.8 Other specified follicular disorders (principal); L03.90 Cellulitis, unspecified | CPT/HCPCS: 87070; 87075; 87077; 87186; 87205 ==